=== PATIENT | male | born 1950 | race Caucasian/White ===

== ENCOUNTER → 2020-05-07 11:35 | Outpatient (CLI) | payer MEDICARE, OTHER, SELFPAY ==
--- NOTE | ~2020-05-07 | US_ITS ---
EXAMINATION: US renal BI DATE: 05/07/2020 11:59 INDICATION: Hematuria, unspecified. TECHNIQUE: Multiple ultrasound grayscale images of the kidneys were obtained. COMPARISON: None. FINDINGS: The right kidney measures 9.2 x 6.2 x 5.2 cm. The left kidney measures 11.0 x 5.5 x 4.8 cm. The kidne ys demonstrate normal parenchymal echogenicity. There is no hydronephrosis. The bladder is normal. IMPRESSION: 1. Normal kidneys. No hydronephrosis. Reviewed, dictated and finalized at [facility].
== END ==
PROVIDERS: PCP Internal Medicine; Visit Provider Internal Medicine
DX: R31.9 Hematuria, unspecified (principal)
CPT/HCPCS: 76775

== ENCOUNTER 2020-05-18 07:11 | Outpatient (CLI) | payer MEDICARE, OTHER, SELFPAY ==
--- NOTE | ~2020-05-18 | CT_ITS ---
EXAMINATION: CT abdomen pelvis wo/w con DATE: 05/18/2020 07:57 INDICATION: Gross hematuria TECHNIQUE: Computed tomography (CT) of the abdomen and pelvis was performed without and subsequently with 130 cc Omnipaque 350 intravenous contrast. Automated exposure control and iterative reconstructi on technique were employed. Exam dose: 1328.03 mGy-cm total exam DLP. COMPARISON: 05/07/2020 bilateral renal ultrasound FINDINGS: There is discoid atelectasis or scarring in the left lower lobe. The included lung bases ar e clear of infiltrate or consolidation. Normal heart size. No pericardial or pleural effusion. There are several up to 8.5 mm hepatic cysts. Gallbladder is unremarkable. No bile duct or pancreatic duct dilatation. Normal splenic size. No pancreatic mass lesion, calcification or ductal dilatation. 2.7 x 4.9 mm nonobstructing lower pole left renal calculus. Pinpoint nonobstructing lower pole left renal calculus. No ureteral calculus or hydroureteronephrosis is evident. The urinary bladder is unremarkable. There is a prominent calcification in the central prostate area, either prostatic or prostatic urethral arlet culus, measuring 8.5 x 10 x 13.5 mm. Normal caliber of the abdominal aorta. No intraperitoneal or retroperitoneal or pelvic mass lesion or adenopathy or ascites. No bowel obstruction, bowel wall thickening, pneumatosis or intraperitoneal free air. There are scattered diverticula of the colon; no CT evidence of diverticulitis. No bowel obstruction, bowel wall thickening, pneumatosis or intraperitoneal free air. No suspicious osteolytic or osteoblastic lesions. IMPRESSION: Prostate enlargement and 8.5 x 10 x 13.5 mm central prostate or prostatic urethral calci fication Left nephrolithiasis Hepatic cysts and Diverticulosis of the colon Reviewed, dictated and finalized at [facility]. Reviewed, dictated and finalized at location [facility]. IMPRESSION: Prostate enlargement and 8.5 x 10 x 13.5 mm central prostate or pr ostatic urethral calcification Left nephrolithiasis Hepatic cysts and Diverticulosis of the colon
[2020-05-18 07:37] LABS: Estimated Glomerular Filt Rate > 60
== END 2020-05-18 07:12 | disposition home or self-care (01) ==
LOC: ANHIMG 07:16
PROVIDERS: PCP Internal Medicine; Visit Provider Urology
DX: R31.0 Gross hematuria (principal)
CPT/HCPCS: 74178; Q9967

== ENCOUNTER 2023-06-15 07:36 | Day surgery (SDC) | payer MEDICARE, SELFPAY ==
[2023-05-28 09:23] VITALS: BMI 23.6
--- NOTE | 2023-06-12 13:50 | PM.HPGS ---
History of Present Illness History of Present Illness Consent: Risks, benefits, and alternatives have been discussed and questions answered. Patient agrees to proceed with procedure. Chief complaint: Neoplasm Screening Narrative: Yousuf Munoz is a 73 year old male Referred for colon cancer screening. Review of Systems Review of Systems: All systems reviewed & are unremarkable except as noted in HPI and below PMFSH Past Medical History Medical History BPH loc w urin obs/LUTS Diabetes Essential (primary) hypertension Mixed hyperlipidemia due to type 2 diabetes mellitus Right knee pain Screening for colon cancer Type 2 diabetes mellitus without complication, without long-term current use of insulin Vitamin D deficiency, unspecified Surgical History Surgical History Kidney stone 06/08/20 Family History Family History Mother Bile duct adenoma Hypertension Father Diabetes mellitus Hypertension Acute myocardial infarction Sibling Hypertension Social History Social History Smoking status: Current some day smoker Tobacco type: cigars Second hand tobacco smoke exposure: No Alcohol intake: unknown Substance use: never Substance use type: does not use Living arrangements: with family Occupation/Education: retired Gender identity (if verbalized by the patient): Male Spiritual care concerns: No Agree to blood products: Yes Meds Home Medications and Allergies Home Medications Medication Instructions Recorded Confirmed Type ergocalciferol (vitamin D2) 1,250 1,250 mcg PO MONTHLY 12 months #12 02/27/20 05/28/23 Rx mcg (50,000 unit) capsule caps cyanocobalamin (vitamin B-12) 1,000 mcg sublingual DAILY #50 ea 10/03/21 05/28/23 Rx 1,000 mcg sublingual lozenge glimepiride 1 mg tablet 1 mg PO BID #180 tabs 04/09/23 05/28/23 Rx metformin 500 mg tablet,extended See Rx Instructions .Route 04/29/23 05/28/23 Rx release 24 hr .COMPLEX #180 tabs atorvastatin 40 mg tablet See Rx Instructions .Route 06/08/23 Rx .COMPLEX #90 tabs ramipril 10 mg capsule See Rx Instructions .Route 06/08/23 Rx .COMPLEX #180 caps Allergies Allergy/AdvReac Type Severity Reaction Status Date / Time No Known Allergies Allergy Verified 05/28/23 09:17 Exam Const: General: alert Orientation/consciousness: patient oriented x3 Resp: Auscultation: clear to auscultation bilaterally Cardio: Rhythm: regular rhythm GI: GI Palp: Yes Soft to palpation and No Tenderness to palpation present (GI) Neuro: General: patient oriented x3 Assessment and Plan Assessment and plan (1) Screening for colon cancer: Code(s): Z12.11 - Encounter for screening for malignant neoplasm of colon Status: Acute Assessment and Plan: Colonoscopy with possible biopsy or polypectomy or cautery or injection of substances.
[2023-06-15] MEDS: LACTATED RINGERS 1,000 ML 150 ML IV CONT (08:50)
--- NOTE | 2023-06-15 09:00 | WPDANESEPPF ---
Anes - Initial Pre Proc Eval Procedure: Operation Date: 06/15/23 10:00 Proposed Procedures p Screening Colonoscopy - Alexys Dominguez MD Date/Time: 06/15/23 09:00 Surgeon: Alexys Dominguez MD Pre Op Diagnosis: Neoplasm Screening Patient Data Age: 73 Gender: M Height: 1.85 m Weight: 79.7 kg Allergies Allergy/AdvReac Type Severity Reaction Status Date / Time No Known Allergies Allergy Verified 05/28/23 09:17 Home Medications Medication Instructions Recorded Confirmed Type ergocalciferol (vitamin D2) 1,250 1,250 mcg PO MONTHLY 12 months #12 02/27/20 05/28/23 Rx mcg (50,000 unit) capsule caps cyanocobalamin (vitamin B-12) 1,000 mcg sublingual DAILY #50 ea 10/03/21 05/28/23 Rx 1,000 mcg sublingual lozenge glimepiride 1 mg tablet 1 mg PO BID #180 tabs 04/09/23 05/28/23 Rx metformin 500 mg tablet,extended See Rx Instructions .Route 04/29/23 05/28/23 Rx release 24 hr .COMPLEX #180 tabs atorvastatin 40 mg tablet See Rx Instructions .Route 06/08/23 Rx .COMPLEX #90 tabs ramipril 10 mg capsule See Rx Instructions .Route 06/08/23 Rx .COMPLEX #180 caps Patient hx anesthesia problems: none Family hx anesthesia problems: none Results Review: All pre-operative results and documents have been reviewed as part of the pre-operative evaluation. [facility] Past Medical History Medical History BPH loc w urin obs/LUTS Diabetes Essential (primary) hypertension Mixed hyperlipidemia due to type 2 diabetes mellitus Right knee pain Screening for colon cancer Type 2 diabetes mellitus without complication, without long-term current use of insulin Vitamin D deficiency, unspecified Surgical History Surgical History Kidney stone 06/08/20 Family History Family History Mother Bile duct adenoma Hypertension Father Diabetes mellitus Hypertension Acute myocardial infarction Sibling Hypertension Social History Social History Smoking status: Current some day smoker Tobacco type: cigars Second hand tobacco smoke exposure: No Alcohol intake: unknown Substance use: never Substance use type: does not use Living arrangements: with family Occupation/Education: retired Gender identity (if verbalized by the patient): Male Spiritual care concerns: No Agree to blood products: Yes Anes - Eval Final PreProcedure Day of Procedure 06/15/23 09:00 Patient weight: normal Heart: regular rate and rhythm Lungs: clear to auscultation and normal air movement Airway: Mallampati scale class II Neurological: alert and oriented Last oral intake: >/= 8 hours ASA classification: III Emergent: no Anesthetic plan: proceed Anesthesia type and monitoring: general GIVS and standard monitoring Results Review: All pre-operative results and documents have been reviewed as part of the pre-operative evaluation. Informed Consent: The patient's anesthetic plan and its attendant risks and benefits were discussed with the patient/family/POA. Questions were solicited and answers provided to the satisfaction of the patient/family/POA.
[2023-06-15 09:05] LABS: Glucose Point of Care 201 mg/dl (65-105)
[2023-06-15 09:17] VITALS: BP 128/85; PULSE 64; RESP 16; TEMP 36.6; O2SAT 98
[2023-06-15 10:20] VITALS: BP 101/64; PULSE 61; RESP 16; O2SAT 95
[2023-06-15 10:30] VITALS: BP 90/62; PULSE 65; RESP 16; O2SAT 97
[2023-06-15 10:40] VITALS: BP 100/76; PULSE 67; RESP 18; O2SAT 99
--- NOTE | 2023-06-15 13:47 | WPDANESPN ---
Anes - Prog Note Post-Op Date/Time: 06/15/23 13:47 Cardiovascular status: normal Respiratory status: normal Airway patency: baseline Mental status: baseline Post-Op hydration status: normal Vital Signs: Last Vital Signs Temp 36.6 C 06/15/23 09:17 Pulse 67 06/15/23 10:40 Resp 18 06/15/23 10:40 BP 100/76 06/15/23 10:40 Pulse Ox 99 06/15/23 10:40 O2 Del Method Room Air 06/15/23 10:40 Pain Score (VAS): 0 I/O: Intake & Output 06/14/23 06/15/23 06/15/23 23:59 07:59 15:59 Intake Total 300 Balance 300 06/15/23 09:02 POC Capillary Glucose 201 H Post-procedural complaints: none Patient Feedback: Patient satisfied with anesthetic care. Other Findings: Patient vital signs back to baseline. Patient denies nausea and vomiting. Patient's pain under control. Patient OK for discharge.
== END 2023-06-15 11:00 | disposition home or self-care (01) ==
PROVIDERS: PCP Family Medicine; Visit Provider Internal Medicine Gastroenterology
PROC: 0DJD8ZZ Inspection of Lower Intestinal Tract, Via Natural or Artificial Opening Endoscopic (ICD-10-PCS; CPT 45378; principal; 2023-06-15 10:00)
DX: Z12.11 Encounter for screening for malignant neoplasm of colon (principal); K57.30 Diverticulosis of large intestine without perforation or abscess without bleeding; K64.8 Other hemorrhoids
CPT/HCPCS: 45378